=== PATIENT | female | born 1975 | race Caucasian/White ===

== ENCOUNTER 2022-11-18 20:57 | Emergency (ER) | payer OTHER, SELFPAY ==
--- NOTE | ~2022-11-18 | XR_ITS ---
EXAMINATION: XR foot LT 2V, XR ankle LT 2V CLINICAL INFORMATION: Injury COMPARISON: None. TECHNIQUE: 3 views of the left foot. 2 additional views of the left ankle. FINDINGS: Left foot: Oblique fracture of the neck of the third metatarsal with slight lateral displacement of the distal fragment. Nondisplaced fracture at the neck of the fourth metatarsal. Nondisplaced fracture of the fifth digit proximal phalanx shaft with suspected extension to the interphalangeal joint. Joint spaces are maintained. Mild soft tissue swelling of the forefoot. Hallux valgus. Left ankle: No additional fracture. The ankle mortise is congruent. No ankle joint effusion. Mild soft tissue swelling throughout. XR/XR ankle LT 2V IMPRESSION: 1. Fractures of the third and fourth metatarsal necks. Fracture of the fifth digit proximal phalanx. 2. Hallux valgus.
--- NOTE | ~2022-11-18 | XR_ITS ---
EXAMINATION: XR foot LT 2V, XR ankle LT 2V CLINICAL INFORMATION: Injury COMPARISON: None. TECHNIQUE: 3 views of the left foot. 2 additional views of the left ankle. FINDINGS: Left foot: Oblique fracture of the neck of the third metatarsal with slight lateral displacement of the distal fragment. Nondisplaced fracture at the neck of the fourth metatarsal. Nondisplaced fracture of the fifth digit proximal phalanx shaft with suspected extension to the interphalangeal joint. Joint spaces are maintained. Mild soft tissue swelling of the forefoot. Hallux valgus. Left ankle: No additional fracture. The ankle mortise is congruent. No ankle joint effusion. Mild soft tissue swelling throughout. XR/XR foot LT 2V IMPRESSION: 1. Fractures of the third and fourth metatarsal necks. Fracture of the fifth digit proximal phalanx. 2. Hallux valgus.
[2022-11-18 21:21] VITALS: BP 156/110; PULSE 68; RESP 20; TEMP 36.4; O2SAT 100; BMI 22.6
--- NOTE | 2022-11-19 00:34 | ED_ITS ---
HPI - Extremity Injury (Lower) General Chief Complaint: Extremity Injury, Lower Stated Complaint: Ankle inj Time Seen by Provider: 11/19/22 00:23 Source: patient Mode of arrival: ambulatory Limitations: no limitations History of Present Illness HPI Narrative: 47-year-old female with no major medical problems presents with acute left foot pain. Patient was walking down the stairs when she missed a step her foot r olled under her. She now has pain that is moderate in nature. It is worse with ambulation. Does not radiate. There is no numbness or tingling. No additional injuries. Related Data Allergies Allergy/AdvReac Type Severity Reaction Status Date / Time No Known Allergies Allergy Verified 11/19/22 00:30 [facility] Social History Social History Advance Directives: No Advance Directives Information Provided: Yes Physical Exam Vital Signs: Vital Signs: Last Vital Signs Temp 97.5 F 11/18/22 21:21 Pulse 68 11/18/22 21:21 Resp 20 11/18/22 21:21 BP 156/110 H 11/18/22 21:21 Pulse Ox 100 11/18/22 21:21 O2 Del Method Room Air 11/18/22 21:21 BMI result Body Mass Index 22.6 GEN: Well developed, no acute distress, alert, oriented HEENT: Normocephalic, atraumatic, normal external ears, nose appears normal Eyes: Normal to appearance Neck: Supple, no lymphadenopathy Respiratory: Talks in complete sentences, no respiratory distress Extremities: No clubbing cyanosis or edema, tenderness left foot, soft tissue swelling, neurovascular intact, dorsal pedis and posterior tibialis toe pulses intact Neurologic: No focal neurologic deficits, cranial nerves 2-12 intact, gait normal Skin: No rash Course Course Course Narrative: 47-year-old female with 3 toe fractures. Patient will be placed in a walking boot with crutches. She should be nonweightbearing until cleared by orthopedist or podiatry. Take Tylenol and ibuprofen as needed for pain. Medical Decision Making Medical Decision Making [facility] Narrative: Patient with acute traumatic foot pain. X-rays will be ordered. Suspect fracture versus contusion. Differential Diagnosis Differential Diagnoses: The differential diagnosis associated with the presentation includes (Fracture, sprain, strain, contusion) Independent Interpretation I performed an independent interpretation of an: Plain X-Ray (Ankle no fracture, left foot, 3rd and 4th metatarsal fracture and 5th proximal phalanx fracture) Prescription Management I considered prescription management with: Pain Medication Discharge Plan Discharge Clinical Impression: Fracture of toe Patient Disposition: Home, Self-Care Instructions: Crutch Instructions (ED), Toe Fracture (ED), Foot Fracture in Adults (ED), Walking Boot (ED) Additional Instructions: You have fractures of 3 different toes under left foot. 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 For pain, you may take ibuprofen and Tylenol. Referrals: Teofilo Chang MD [Physician] - 5 days
[2022-11-19] MEDS: Acetaminophen 325 MG TABLET 975 MG PO (01:05)
[2022-11-19] MEDS: Ibuprofen 400 MG TABLET PO (01:05)
== END 2022-11-19 01:08 | disposition home or self-care (01) ==
PROVIDERS: Emergency Provider Emergency Medicine
DX: S92.512A Displaced fracture of proximal phalanx of left lesser toe(s), initial encounter for closed fracture (principal); S92.332A Displaced fracture of third metatarsal bone, left foot, initial encounter for closed fracture; S92.342A Displaced fracture of fourth metatarsal bone, left foot, initial encounter for closed fracture; W10.8XXA Fall (on) (from) other stairs and steps, initial encounter; Y93.89 Activity, other specified; Y92.9 Unspecified place or not applicable; Y99.9 Unspecified external cause status
CPT/HCPCS: 73600; 73620; 99283

== ENCOUNTER → 2022-11-28 10:11 | Outpatient (BNVA) | payer OTHER, SELFPAY | PROVIDERS: Visit Provider Physician Assistant | DX: S92.512A Displaced fracture of proximal phalanx of left lesser toe(s), initial encounter for closed fracture (principal); S92.332A Displaced fracture of third metatarsal bone, left foot, initial encounter for closed fracture; S92.342A Displaced fracture of fourth metatarsal bone, left foot, initial encounter for closed fracture | CPT/HCPCS: 99202 ==

== ENCOUNTER 2023-01-09 11:05 | Outpatient (REF) | payer OTHER, SELFPAY ==
--- NOTE | ~2023-01-09 | XR_ITS ---
EXAMINATION: XR FOOT, LEFT CLINICAL INFORMATION: Left foot pain. COMPARISON: 11/18/2022 TECHNIQUE: AP, lateral, and oblique views of the left foot. FINDINGS: There is no significant change in alignment of nondisplaced fracture of the left 5th proximal phalanx and left 3rd distal metacarpal. There is some mild periosteal new bone formation present. Erosion about the medial aspect of the distal 1st metatarsal bone is evident. Joint spaces are maintained. XR/XR foot LT min 3V IMPRESSION: No significant change in appearance of fractures involving the 3rd distal metatarsal and 5th proximal phalanx.
== END 2023-01-09 11:06 | disposition home or self-care (01) ==
LOC: HO.HOSX 11:05
PROVIDERS: Visit Provider Physician Assistant
DX: S92.912D Unspecified fracture of left toe(s), subsequent encounter for fracture with routine healing (principal)
CPT/HCPCS: 73630; 99212

== ENCOUNTER 2024-10-01 18:07 | Emergency (ER) | payer OTHER, SELFPAY ==
[2024-10-01 18:20] VITALS: BP 175/96; PULSE 89; RESP 18; TEMP 36.8; O2SAT 100; BMI 32.6
--- NOTE | 2024-10-01 18:20 | ED_ITS ---
HPI - General Adult General Chief complaint: General Medical Stated complaint: Syncope t-1/ L ear pain Time Seen by Provider: 10/02/24 00:27 Source: patient Limitations: no limitations History of Present Illness ED Provider: Lacy Tan PA-C HPI narrative: 49-year-old female presents for evaluation of a syncopal episode that happened yesterday. Apparently 2 days ago the patient was in [place] and had an endoscopy due to a chicken bone stuck in her throat; she passed out due to esophageal FB. [place] the [place]. She also complains of left ear pain x 1 day. No recent cough or cold symptoms denies fever sore throat nasal congestion. Related Data Home Medications ?Medication ?Instructions ?Recorded ?Confirmed No Known Home Meds 11/28/22 11/28/22 Allergies Allergy/AdvReac Type Severity Reaction Status Date / Time No Known Allergies Allergy Verified 10/01/24 18:23 Review of Systems 2 Review of Systems: Yes all other systems are reviewed and are negative Constitutional: Constitutional: Denies fatigue, Denies fever(s) and Denies headache(s) ENT: Denies dizziness, Reports otalgia, Denies headache(s), Denies nasal congestion and Denies sore throat Cardiovascular: Cardiovascular: Denies chest pain and Denies dyspnea Respiratory: Respiratory: Denies cough and Denies dyspnea Neurologic: Denies dizziness and Denies headache(s) Endocrine: Endocrine: Denies fatigue PMFSH Past Medical History Attestation statement: The following information was validated with the patient. Medical History History of arthritis Social History Social History Patient Tobacco Use Status: Never used Tobacco Smoked in Last 30 Days: No Use of substances other than those prescribed or required for medical reasons: No Advance Directives: No Advance Directives Information Provided: No Patient : No Current occupational status: employed Current occupation: [employer] Physical Exam ED Vital Signs: Vital Signs - 24 hr 10/01/24 18:20 10/01/24 21:37 Temperature 98.2 F 97.8 F Pulse Rate 89 71 Respiratory Rate 18 18 Blood Pressure 175/96 H 156/83 H Pulse Oximetry 100 100 Oxygen Delivery Method Room Air Room Air BMI result Body Mass Index 32.6 Const Other: Alert well-appearing Orientation/consciousness: patient oriented x3 HENMT Other: Left TM is translucent, no overlying erythema no exudate, no tragal tenderness not, no exudate or erythema in external ear canal Resp Effort & Inspection: normal respiratory effort Cardio Other: Normal peripheral perfusion Skin Other: Warm dry no rash Neuro General: patient oriented x3, gait normal, no focal motor deficits and CN's II- XI intact bilaterally Psych Other: Cooperative Course Course Course Narrative: RME, this is a rapid medical exam performed by Scott Cobian please refer to primary provider for complete H&P- 49-year-old female presents for evaluation of a syncopal episode that happened yesterday. Apparently 2 days ago the patient was in [place] and had an endoscopy due to a chicken bone stuck in her throat. The patient [facility] today prompting the visit. She also complains of left ear pain Medications Administered Discontinued Medications Generic Name Dose Route Start Last Admin Trade Name Freq PRN Reason Stop Dose Admin Ibuprofen 600 mg 10/01/24 21:37 10/01/24 21:40 Ibuprofen 600 Mg Tablet PO 10/01/24 21:38 600 mg ONCE ONE Administration Medical Decision Making Medical Decision Making [facility] Narrative: 49-year-old female presents for evaluation of a syncopal episode that happened yesterday. Apparently 2 days ago the patient was in [place] and had an endoscopy due to a chicken bone stuck in her throat; she passed out due to esophageal FB. The patient returned to the [facility] today prompting the visit. She also complains of left ear pain x 1 day. No recent cough or cold symptoms denies fever sore throat nasal congestion. No chronic issues History: Per patient I have considered the following differential diagnoses: Om, OE, serous otitis, viral syndrome Plan: I think things got lost in translation in triage, the patient was not here for evaluation of her syncopal episode. Sounds as if she had a vasovagal response to the esophageal foreign body. Screening labs including a cardiac enzymes viral panel and EKG were obtained. Everything is unremarkable. Her exam was unremarkable, there was no evidence of infection or congestion within the inner ear. She can follow up with the primary care provider. I have independently reviewed the following tests: Labs: No leukocytosis, not anemic, no electrolyte abnormality, troponin negative, viral panel negative EKG: Normal sinus rhythm, rate of 74, no ischemic changes no ectopy QTC 419 Lab Data 10/01/24 18:35 10/01/24 18:35 Labs: Lab Results 10/01/24 Range/Units 18:35 WBC 7.8 (4.8-10.8) X10*3/uL RBC 4.24 (4.20-5.50) X10*6/uL Hgb 12.2 (12.0-16.0) g/dl Hct 37.0 (37.0-47.0) % MCV 87.3 (80.0-98.0) fL MCH 28.8 (27.0-33.0) pg MCHC 33.0 (31.0-35.0) g/dl RDW 13.2 (11.0-16.0) % Plt Count 320 (160-400) X10*3/uL MPV 11.0 (9.4-12.3) fL Immature Gran % (Auto) 0.4 (0.0-0.4) % Neut % (Auto) 50.0 (45-73) % Lymph % (Auto) 37.7 (20-40) % [place] % (Auto) 6.6 (2-11) % Eos % (Auto) 4.5 H (0-4) % Baso % (Auto) 0.8 (0-2) % Lymph # (Auto) 3.0 (1.2-4.9) X10*3/uL [place] # (Auto) 0.5 (0.1-1.2) X10*3/uL Eos # (Auto) 0.4 (0.0-0.4) X10*3/uL Baso # (Auto) 0.1 (0.0-0.2) X10*3/uL Abs Immat Gran (auto) 0.03 (0.00-0.03) X10*3/uL Absolute Neuts (auto) 3.9 (2.0-8.3) x10*3/uL Absolute Nucleated RBC 0.000 (0.0-0.012) X10*3/uL Nucleated RBC % (auto) 0.0 (0.0-0.2) /100WBC Sodium 141 (135-145) mmol/L Potassium 4.6 (3.3-5.1) mmol/L Chloride 110 H (96-108) mmol/L Carbon Dioxide 26 (22-29) mmol/L Anion Gap 10 L (12-20) BUN 11 (9-16) mg/dL Creatinine 0.86 (0.5-1.4) mg/dL Estim Creat Clear Calc 76.2 Estimated GFR > 60 Random Glucose 133 H (60-115) mg/dL Calcium 9.3 (8.4-10.2) mg/dL Magnesium 2.1 (1.6-2.6) mg/dL Total Bilirubin 0.2 (0.0-1.0) mg/dL AST 29 (5-31) U/L ALT 50 H (0-31) U/L Alkaline Phosphatase 63 (39-117) U/L Troponin I High Sens < 2.7 (<3.5-17.0) ng/L Total Protein 7.7 (6.5-8.0) g/dL Albumin 3.9 (3.5-5.0) g/dL Lipase 73 (8-78) U/L Influenza Type A (PCR) NEGATIVE (Negative) Influenza Type B (PCR) NEGATIVE (Negative) RSV RNA Qual (PCR) NEGATIVE (Negative) SARS-CoV-2 RNA (RT-PCR) NEGATIVE (Negative) Discharge Plan Discharge Clinical Impression: Pain in left ear Patient Disposition: Home, Self-Care Instructions: Earache (ED) Additional Instructions: All of your screening labs were normal, there were no concerning changes on your EKG. There was no infection of the ear. Follow up with your primary care provider in a week. Prescriptions: No Action No Known Home Meds Interventions: ED Discharge Assessment Last Done: 10/02/24 01:16 Discharge Date/Time: 10/02/24 01:17 Print Language: [place]
--- NOTE | 2024-10-01 18:21 | ECG_ITS ---
Test Reason : HYPERTENSION Blood Pressure : */* mmHG Vent. Rate : 74 BPM Atrial Rate : 74 BPM P-R Int : 146 ms QRS Dur : 78 ms QT Int : 378 ms P-R-T Axes : 28 9 4 degrees QTcB Int : 419 ms Normal sinus rhythm with sinus arrhythmia Normal ECG No previous ECGs available Referred By: Nghia Cobian Electronically Signed By: MARY ANN MCKOY
[2024-10-01 18:38] LABS: MANUAL DIFF FLAG NO
[2024-10-01 18:46] LABS: Basophils Absolute Auto 0.1 X10*3/uL (0.0-0.2); Basophils Percent Auto 0.8 % (0-2); Eosinophils Absolute Auto 0.4 X10*3/uL (0.0-0.4); Eosinophils Percent Auto 4.5 % (0-4); Hemoglobin 12.2 g/dl (12.0-16.0); Imm Gran Abs Auto 0.03 X10*3/uL (0.00-0.03); Imm Gran Pct Auto 0.4 % (0.0-0.4); Lymphocytes Percent Auto 37.7 % (20-40); Mean Corpuscular Hemoglobin 28.8 pg (27.0-33.0); Mean Corpuscular Volume 87.3 fL (80.0-98.0); Monocytes Absolute Auto 0.5 X10*3/uL (0.1-1.2); Monocytes Percent Auto 6.6 % (2-11); Neutrophils Absolute Auto 3.9 x10*3/uL (2.0-8.3); Platelet Count 320 X10*3/uL (160-400); Red Blood Count 4.24 X10*6/uL (4.20-5.50); Red Cell Distribution Width 13.2 % (11.0-16.0); White Blood Count 7.8 X10*3/uL (4.8-10.8)
[2024-10-01 19:00] LABS: Alanine Aminotransferase 50 U/L (0-31); Albumin Level 3.9 g/dL (3.5-5.0); Alkaline Phosphatase 63 U/L (39-117); Anion Gap 10 (12-20); Aspartate Amino Transferase 29 U/L (5-31); Bilirubin Total 0.2 mg/dL (0.0-1.0); Blood Urea Nitrogen 11 mg/dL (9-16); Calcium 9.3 mg/dL (8.4-10.2); Carbon Dioxide 26 mmol/L (22-29); Chloride 110 mmol/L (96-108); Creatinine Clr Calc Pharmacy 76.2; Estimated Glomerular Filt Rate > 60; Glucose Random 133 mg/dL (60-115); Lipase 73 U/L (8-78); Magnesium 2.1 mg/dL (1.6-2.6); Potassium 4.6 mmol/L (3.3-5.1); Sodium 141 mmol/L (135-145); Total Protein 7.7 g/dL (6.5-8.0)
[2024-10-01 19:12] LABS: Troponin-I High Sensitivity < 2.7 ng/L (<3.5-17.0)
[2024-10-01 19:23] LABS: Influenza A PCR NEGATIVE (Negative); Influenza B PCR NEGATIVE (Negative); Resp Syncy Virus RNA Qual PCR NEGATIVE (Negative); SARS COV2 PCR INHOUSE NEGATIVE (Negative)
[2024-10-01 21:37] VITALS: BP 156/83; PULSE 71; RESP 18; TEMP 36.6; O2SAT 100
[2024-10-01] MEDS: Ibuprofen 600 MG TABLET PO (21:40)
--- NOTE | 2024-10-01 22:29 | PC.NURSE ---
Pt was ambulatory to ED bed w/o diff and no SOB. No unilat neuro deficits noted. States she had a proceedure in [place] d/t a food bolus being stuck. Yesterday felt dizzy and passed out at home. No injuries noted.
--- NOTE | 2024-10-01 22:33 | PC.NURSE ---
Pt has been eating beans and rice w/o diff.
[2024-10-02 01:15] VITALS: BP 133/84; PULSE 70; RESP 16; TEMP 36.4; O2SAT 100
[2024-10-02 01:16] VITALS: BP 133/84; PULSE 70; RESP 16; TEMP 36.4; O2SAT 100
== END 2024-10-02 01:17 | disposition home or self-care (01) ==
PROVIDERS: Physician Assistant; Emergency Provider Emergency Medicine
DX: H92.02 Otalgia, left ear (principal); I49.8 Other specified cardiac arrhythmias; R55 Syncope and collapse; Z03.818 Encounter for observation for suspected exposure to other biological agents ruled out
CPT/HCPCS: 0241U; 80053; 83690; 83735; 84484; 85025; 93005; 99283; 99284

== ENCOUNTER → 2024-10-01 18:21 | Outpatient (BNV) | payer OTHER, SELFPAY | PROVIDERS: Emergency Provider Emergency Medicine; Visit Provider Internal Medicine | DX: R55 Syncope and collapse (principal); I10 Essential (primary) hypertension | CPT/HCPCS: 93010 ==

== ENCOUNTER 2025-06-09 09:45 | Outpatient (REF) | payer OTHER, SELFPAY ==
--- NOTE | ~2025-06-09 | XR_ITS ---
XR KNEE DION 3V HISTORY: Pain in unspecified knee. COMPARISON: None. TECHNIQUE: AP view bilateral knees standing, and lateral views of each knee. FINDINGS: RIGHT KNEE: No fracture, dislocation, or suspicious bone lesion. Minimal medial and mild patellofemoral compartment osteoarthrosis. Minimal spurring of the tibial spines. No evidence of joint effusion. Soft tissues appear normal. LEFT KNEE: No fracture, dislocation, or suspicious bone lesion. Mild medial and patellofemoral compartment osteoarthrosis. Mild spurring of the tibial spines. No evidence of joint effusion. Soft tissues appear normal. XR/XR Knee Dion 1or 2V IMPRESSION: 1. Mild medial and patellofemoral compartment osteoarthrosis of both knees, left greater than right. 2. No evidence of joint effusion. Electronically signed by: Jose Granados MD 06/09/2025 01:12 PM OSMAN
[2025-06-09 12:55] LABS: INTERNATIONAL NORM RATIO 1.0 (0.9-1.1); Prothrombin Time 12.8 SEC (11.2-13.5)
[2025-06-09 12:57] LABS: Hematocrit 42.3 % (37.0-47.0); Hemoglobin 13.9 g/dl (12.0-16.0); Mean Corpuscular HGB Conc 32.9 g/dl (31.0-35.0); Mean Corpuscular Hemoglobin 28.5 pg (27.0-33.0); Mean Corpuscular Volume 86.7 fL (80.0-98.0); NRBC Abs Auto 0.000 X10*3/uL (0.0-0.012); NRBC Pct Auto 0.0 /100WBC (0.0-0.2); Partial Thromboplastin Time 34.1 SEC (26.7-34.1); Platelet Count 352 X10*3/uL (160-400); Red Blood Count 4.88 X10*6/uL (4.20-5.50); White Blood Count 5.7 X10*3/uL (4.8-10.8)
[2025-06-09 13:14] LABS: Appearance Urine Clear; Glucose Urine UA Negative (Negative); PH 5.5 (5.0-9.0); Specific Gravity - Urine 1.020 (1.005-1.025); UMIC TRIGGER UA YES
[2025-06-09 13:27] LABS: Alanine Aminotransferase 25 U/L (0-31); Albumin Level 4.8 g/dL (3.5-5.0); Alkaline Phosphatase 85 U/L (39-117); Anion Gap 12 (12-20); Aspartate Amino Transferase 32 U/L (5-31); Blood Urea Nitrogen 13 mg/dL (9-16); Calcium 9.8 mg/dL (8.4-10.2); Carbon Dioxide 27 mmol/L (22-29); Chloride 105 mmol/L (96-108); Cholesterol 196 mg/dL (<200); Estimated Glomerular Filt Rate > 60; HDL Cholesterol 62 mg/dL (>40); Potassium 3.9 mmol/L (3.3-5.1); Sodium 140 mmol/L (135-145); Total Protein 8.4 g/dL (6.5-8.0); Triglycerides 81 mg/dL (<150)
[2025-06-10 08:20] LABS: ~HepC Num1 0.56 S/CO (0.00-0.79)
[2025-06-10 08:21] LABS: HIV Num 1 0.08 S/CO (0.00-0.99); ~Hepatitis C Antibody Nonreactive (Nonreactive)
== END 2025-06-09 09:46 | disposition home or self-care (01) ==
LOC: HO.LAB 09:45
PROVIDERS: Visit Provider Internal Medicine
DX: Z00.00 Encounter for general adult medical examination without abnormal findings (principal); Z23 Encounter for immunization; I10 Essential (primary) hypertension; M17.0 Bilateral primary osteoarthritis of knee; E66.9 Obesity, unspecified; F33.1 Major depressive disorder, recurrent, moderate; N39.0 Urinary tract infection, site not specified; Z98.84 Bariatric surgery status; Z68.34 Body mass index [BMI] 34.0-34.9, adult
CPT/HCPCS: 36415; 73560; 80053; 80061; 81001; 82306; 83036; 84443; 85027; 85610; 85730; 86200; 86431; 86803; 87389; 90471; 90472; 90656; 90715; 99202

== ENCOUNTER 2025-06-09 09:45 | Outpatient (AMB) | payer OTHER, SELFPAY ==
--- NOTE | 2025-06-09 10:25 | A.OFFPC_ITS ---
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 Transferring care from Dr Mabel Galeas([facility]). Medical records have been requested and have not received. Apron Worker Required: No Meter And Service Line Inspector: Not Required per policy Accompanied by: Self / Same As Patient Allergies No Known Allergies Allergy (Verified 06/09/25 10:26) Medication List - Last Reconciled 06/09/25 by Rashmi Singh MD acetaminophen (Tylenol Extra Strength) 1,000 mg PO Q6H PRN Tobacco use date assessed: 06/09/25 Dental Screening Dental Screen Date: 06/09/25 Did you have a dental visit in the last 12 months?: Yes Did you have a dental problem in the last 6 months where you did not have access to dental care?: No Was dental information given to patient?: Patient has dentist HPI HPI Comments History of Present Illness Details The patient is a 50-year-old female with PMH of MDD, HTN, arthritis presenting to [facility] care with concerns of arthritis, body stiffness, and bruising. She reports her body feels tight and heavy, making it difficult to get up or walk easily. She experiences random bruising that appears a day or two after feeling stiff. The patient has a known history of arthritis in her knees, diagnosed via X-ray in [place] prior to her bariatric surgery (no documentation available).. About two months ago, her leg became significantly swollen, feeling as if it were full of water, and she has since noticed persistent lumps in that area. She experiences pain in both knees, which worsens with walking for more than 10 minutes, causing her to limp, but she is pain-free while sitting. At night, particularly after active days, she has pain with sore toes and a needle-like sensation in both feet, which can disturb her sleep. Past medical history is significant for bariatric surgery, after which her weight decreased from 224 lbs to 135 lbs, with an associated improvement in her arthritis pain. She has since regained some weight, and the pain has returned. She also had a foot fracture in October 2022, for which she was treated by an orthopedic surgeon. She reports feeling depressed due to her physical limitations. She was previously on venlafaxine for depression but stopped about three years ago. For pain, she was taking Tylenol but recently switched to ibuprofen, which she finds more helpful. She also uses a topical cream like Voltaren for joint pain nightly, which provides some relief. Her last colonoscopy was about 4-5 years ago, and her last mammogram was 3 years ago, which showed a small mass that was being monitored as per the patient (no records available). [facility] Medical History (Updated 06/09/25 @ 13:29 by Rashmi Singh MD) History of arthritis Surgical History (Updated 06/09/25 @ 10:35 by AMARILIS Mackey) History of carpal tunnel surgery History of D&C History of 2 sections Hx of bariatric surgery Social History (Updated 06/09/25 @ 10:25 by AMARILIS Mackey) Housing: Apartment Alcohol intake: never Patient Tobacco Use Status: Never used Tobacco e-Cigarette/Vaping Use: Never Used Second Hand Smoke Exposure: No service: No Current occupational status: unemployed Current occupation: [employer] Cognitive needs: No Hearing needs: No Vision needs: Yes (Reading glasses) Questionnaire PHQ-9 Over the last 2 weeks, how often have you been bothered by any of the following problems? 1. Little interest or pleasure in doing things: several days 2. Feeling down, depressed, or hopeless: several days 3. Trouble falling or staying asleep, or sleeping too much: several days 4. Feeling tired or having little energy: several days 5. Poor appetite or overeating: nearly every day 6. Feeling bad about yourself - or that you are a failure or have let yourself or your family down: not at all 7. Trouble concentrating on things, such as reading the newspaper or watching television: several days 8. Moving or speaking so slowly that other people could have noticed. Or the opposite - being so fidgety or restless that you have been moving around a lot more than usual: not at all 9. Thoughts that you would be better off or of hurting yourself in some way: not at all Total score: 8 Depression Screening Interpretation: Positive (2/2 pain in her knees) Depression Screening Done: Yes Source: Developed by Drs. Aram Cui, Daisy Concepcion, Alexander Mendoza and colleagues, with an educational karo from [employer]. Thrive Questionnaire Date Thrive assessed: 06/07/25 I am a: Patient What is your living situation today?: I have a steady place to live Within the past 12 months, did the food you bought not last and you didn't have the money to get more?: Sometimes True Within the past 12 months, did you worry whether your food would run out before you got money to buy more?: Sometimes True Do you have trouble paying for medicines?: No Do you have trouble getting transportation to medical appointments?: No Do you have trouble paying your heating and electricity bill?: No Do you have trouble taking care of your child, family member or friend?: No Do you have trouble with day-to-day activities such as bathing, preparing meals, shopping, managing finances, etc.?: No Are you currently unemployed and looking for a job?: I choose not to answer this question Are you interested in more education?: No Please select the resources that you would like help with: None Currently or been in a relationship where the following occur: No concerns reported THRIVE Score: 2 AUDIT C Alcohol Use Questionnaire (AUDIT-C) 1. How often do you have a drink containing alcohol?: Monthly or less 2. How many drinks containing alcohol do you have on a typical day when you are drinking?: 1 or 2 3. How often do you have six or more drinks on one occasion?: Never Total Score: 1 SALINA-7 AMB Questionnaire SALINA-7 Date SALINA - 7 assessed: 06/09/25 Feeling nervous, anxious, or on edge: 3 = Nearly every day Not being able to stop or control worryin = More than half the days Worrying too much about different things: 2 = More than half the days Trouble relaxin = Several days Being so restless that it is hard to sit still: 0 = Not at all Becoming easily annoyed or irritable: 0 = Not at all Feeling afraid as if something awful might happen: 0 = Not at all Total SALINA-7 score (0-4 normal; 5-9 mild; 10-14 moderate; 15-21 severe): 8 Source: Developed by Drs. Aram Cui, Daisy Concepcion, Alexander Mendoza and colleagues, with an educational karo from [employer]. Review of Systems Const Details: As per HPI. Physical exam (Primary Care) Vital Signs: Last Vital Signs Temp 97.1 F 06/09/25 10:26 Pulse 73 06/09/25 10:26 BP 150/70 H 06/09/25 10:26 Pulse Ox 100 06/09/25 10:26 Oxygen Delivery Method Room Air 06/09/25 10:26 BMI result Body Mass Index 34.2 Tobacco/Smoking Status: Tobacco use Status Tobacco use date assessed 06/09/25 06/09/25 10:37 Patient Tobacco Use Status Never used Tobacco 06/09/25 10:37 e-Cigarette/Vaping Use Never Used 06/09/25 10:37 PHQ-9: PHQ-9 Score PHQ-9: Total score 8 06/09/25 11:15 Depression Screening Interpretation: Positive (2/2 pain in her knees) Thrive Assessment: Date of Thrive Assessment Date Thrive assessed 06/07/25 06/09/25 10:37 Currently or been in a relationship where the following occur: No concerns reported Const Other: Pertinent findings are in BOLD GENERAL APPEARANCE NAD, activity normal for age, well developed/ well nourished, no cyanosis, pallor, or diaphoresis. EYES lids/conjunctiva normal. EARS/NOSE/THROAT Mucous membranes moist, nares normal, lips/teeth normal uvula midline without oral pharyngeal erythema, exudate or swelling TMs normal bilaterally. No lymphangitis/lymphedema. HEAD/NECK normocephalic atraumatic, no facial trauma, neck is supple. RESPIRATORY respiratory effort normal, speaks in full sentences, no tripod position, no accessory muscle use. Lungs clear to auscultation without rhonchi, wheezes, rales CARDIAC Regular rate and rhythm, no edema. ABDOMINAL Soft, ND/NT. No evidence of fluid wave. No pulsatile masses on exam, rebound tenderness, Hedrick sign or pain over Mcburney's point. MUSCLES/EXTREMITIES No abnormal range of motion, no swelling. SKIN Warm, pink and dry. No rashes, dermatoses, petechiae or lesions. NEUROLOGICAL Speech is clear and appropriate. Normal level of consciousness. Gait and coordination are normal. 5/5 strength in all extremities. PSYCH Normal mood and affect. Judgement/competence is appropriate Office Procedures Flu Questionnaire Does the patient have a severe egg allergy?: No Does the patient have severe life threatening allergies?: No Does the patient have a fever or illness today?: No Has the patient ever had Guillain-[place] Syndrome?: No Has the patient ever had any past reaction to a flu shot?: No Immunizations Fluarix [id number] (PF) 45 mcg (15 mcg x 3)/0.5 mL IM syringe Performing Provider: Rashmi Singh MD Performing Location: [facility] Administered by: Paula Thompson RN on 06/09/25 11:31 Dose Route Admin Location Dispensed Lot Number Expiration Date NDC Associate Vice President 0.5 mL IM Right Deltoid 0.5 mL [id number] 01/20/26 57281-512-17 [employer] VIS Given Date VIS Provided VIS Publication Date 06/09/25 Single Vaccine 24 Eligibility Eligibility Date Funding Source Not VFC Eligible 06/09/25 Private Boostrix Tdap 2.5 Lf unit-8 mcg-5 Lf/0.5 mL intramuscular syringe Performing Provider: Rashmi Singh MD Performing Location: [facility] Administered by: Paula Thompson RN on 06/09/25 11:28 Dose Route Admin Location Dispensed Lot Number Expiration Date [facility] Associate Vice President 0.5 mL IM Left Deltoid 0.5 mL [id number] 10/18/27 06378-375-61 [employer] Total Dispensed Waste 0.5 mL 0 % VIS Given Date VIS Provided VIS Publication Date 06/09/25 Single Vaccine 21 Eligibility Eligibility Date Funding Source Not VFC Eligible 06/09/25 Private Coding Level of Care Code New Pt Level 4 (85314) Diagnoses Healthcare maintenance Z00.00 Chronic pain of both knees M25.561; M25.562; G89.29 Chronicity: chronic Laterality: bilateral Bruising T14.8XXA Obesity (BMI 30.0-34.9) E66.9 Moderate episode of recurrent major depressive disorder F33.1 Depression Type: major depressive disorder Major depression recurrence: recurrent Active/Remission status: currently active Major depression episode severity: moderate Urinary tract infection without hematuria, site unspecified N39.0 Urinary tract infection type: site unspecified Hematuria presence: without hematuria Primary hypertension I10 Hypertension type: primary hypertension Time Spent (min) 45 Assessment & Plan Assessment & Plan (1) Healthcare maintenance: Code(s): Z00.00 - Encounter for general adult medical examination without abnormal findings Category: Medical Plan: CBC, CMP, Lipid panel, A1C, TSH w T4, vit D. Ordered. Shingles 2 doses when >50 yo. Advised patient to get it from retail pharmacy. COVID: two doses. Completed. Tdap: Today. Pneumococcal: >50 yo. 18-49 with CKD, lung disease, weakened immune system, Heart disease, DM, cochlear implant. Next visit. Flu vaccine: Today. Colonoscopy: 45-75. Got iti recently. Reports it was normal. Asked the patient to bring the colonoscopy results with her next visit. Will be due at 53 if no records provided. AAA: 65 -75. NI. never smoked. CT lun - 78. NI. never smoked. HPV: senior occupational therapist referral. HIV: Ordered. HCV: Ordered. Dexa: At 63. Mammogram: Ordered. (2) Knee pain: Code(s): M25.569 - Pain in unspecified knee Category: Medical Qualifiers: Chronicity: chronic Laterality: bilateral Qualified Code(s): M25.561 - Pain in right knee; M25.562 - Pain in left knee; G89.29 - Other chronic pain Plan: - An X-ray of both knees will be obtained to assess the current state of her arthritis. - Rheumatoid factor and CCP ordered. - The patient may continue using ibuprofen, Tylenol, and topical diclofenac gel (Voltaren) for pain management. - The patient is instructed to take pictures of any swelling, lumps, or bruises that appear. (3) Bruising: Code(s): T14.8XXA - Other injury of unspecified body region, initial encounter Category: Medical Plan: - Coagulation studies, including INR, PT, and PTT, will be ordered to investigate the cause of the bruising. - Advised the patient to get pictures of her bruises when they occur. (4) Obesity (BMI 30.0-34.9): Comment: s/p Bariatric surgery. Code(s): E66.9 - Obesity, unspecified Category: Medical Plan: - A referral will be placed to a weight management clinic to assist with weight loss strategies, including potential prescription medications. (5) Depression: Code(s): F32.A - Depression, unspecified Category: Medical Qualifiers: Depression Type: major depressive disorder Major depression recurrence: recurrent Active/Remission status: currently active Major depression episode severity: moderate Qualified Code(s): F33.1 - Major depressive disorder, recurrent, moderate Plan: - Venlafaxine will be initiated at a starting dose of 37.5 mg daily to manage her mood and potentially alleviate some of her pain symptoms. - A follow-up appointment is scheduled in one month to assess her response, with a goal of potentially increasing the dose to 75 mg. (6) Urinary tract infection: Comment: Suspected. Code(s): N39.0 - Urinary tract infection, site not specified Category: Medical Qualifiers: Urinary tract infection type: site unspecified Hematuria presence: without hematuria Qualified Code(s): N39.0 - Urinary tract infection, site not specified Plan: - A urinalysis will be ordered to check for a urinary tract infection based on the patient's report of urine odor. (7) HTN (hypertension): Code(s): I10 - Essential (primary) hypertension Category: Medical Qualifiers: Hypertension type: primary hypertension Qualified Code(s): I10 - Essential (primary) hypertension Plan: - Amlodipine 5 mg daily will be started for blood pressure management. - The patient was advised to monitor her blood pressure at home or at a pharmacy and keep a log of the readings to review at her one-month follow-up. Plan I have discussed with the patient that we will start with a comprehensive workup to investigate her symptoms of joint pain, stiffness, and bruising. This includes ordering a panel of blood tests to check for general health markers, inflammatory conditions like rheumatoid arthritis, and coagulation issues, as well as an X-ray of her knees. We discussed initiating treatment for her elevated blood pressure with amlodipine 5 mg and for her depression with venlafaxine 37.5 mg, which may also help with her pain. I advised her to monitor her blood pressure at home. I have placed a referral to a weight management clinic to address her weight regain and to an HYDRO TECHNICIAN for routine care. We also arranged for her to receive her flu and tetanus vaccines today. I instructed her to take photographs of any new bruises or swelling and to bring her previous colonoscopy results to our follow-up visit in one month, where we will review all results and reassess her treatment plan. We will follow-up in one month to assess response to Venlafaxine, review knee images, lab results and pictures of bruising if any. Orders: Orders Comprehensive Met. Panel Today Z00.00 - Encounter for general adult medical examination without abnormal findings Hemoglobin A1c Today Z00.00 - Encounter for general adult medical examination without abnormal findings HIV Ab/Ag Today Z00.00 - Encounter for general adult medical examination without abnormal findings Lipid Panel Today Z00.00 - Encounter for general adult medical examination without abnormal findings Vitamin D 25-OH Total Today Z00.00 - Encounter for general adult medical examination without abnormal findings TSH reflex Free T4 Today Z00.00 - Encounter for general adult medical examination without abnormal findings Prothrombin Time INR Today T14.8XXA - Other injury of unspecified body region, initial encounter Cyclic Citrullinated Peptide Today M25.569 - Pain in unspecified knee TDaP Immunization Today Z23 - Encounter for immunization Complete Blood Count no Diff Today Z00.00 - Encounter for general adult medical examination without abnormal findings Hepatitis C Antibody Reflex Today Z00.00 - Encounter for general adult medical examination without abnormal findings XR Knee Dion 1or 2V Today M25.569 - Pain in unspecified knee Partial Thromboplastin Time Today T14.8XXA - Other injury of unspecified body region, initial encounter UA w Microscopic Today Z00.00 - Encounter for general adult medical examination without abnormal findings Rheumatoid Factor Today M25.569 - Pain in unspecified knee MM screening mammo BI Today Z12.31 - Encounter for screening mammogram for malignant neoplasm of breast Influenza [id number] Immunization Today Z23 - Encounter for immunization Referrals Medical Weight Management Referral E66.9 - Obesity, unspecified HYDRO TECHNICIAN Referral Z00.00 - Encounter for general adult medical examination without abnormal findings Medications: New venlafaxine ER 37.5 mg PO DAILY 30 caps 0RF amlodipine 5 mg PO DAILY 30 tabs 0RF
[2025-06-09 10:26] VITALS: BP 150/70; PULSE 73; TEMP 36.2; O2SAT 100; BMI 34.2
--- NOTE | 2025-06-09 11:31 | AM.OFFVISNUR ---
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 Allergies No Known Allergies Allergy (Verified 06/09/25 10:26) Medication List - Last Reconciled 06/09/25 by Rashmi Singh MD acetaminophen (Tylenol Extra Strength) 1,000 mg PO Q6H PRN Office Procedures Flu Questionnaire Does the patient have a severe egg allergy?: No Does the patient have severe life threatening allergies?: No Does the patient have a fever or illness today?: No Has the patient ever had Guillain-[place] Syndrome?: No Has the patient ever had any past reaction to a flu shot?: No Immunizations Fluarix [id number] (PF) 45 mcg (15 mcg x 3)/0.5 mL IM syringe Performing Provider: Rashmi Singh MD [place] [facility] Administered by: Paula Thompson RN on 06/09/25 11:31 Dose Route Admin Location Dispensed Lot Number Expiration Date [place] Child Neurologist 0.5 mL IM Right Deltoid 0.5 mL [id number] 01/20/26 11592-503-00 [employer] VIS Given Date VIS Provided VIS Publication Date 06/09/25 Single Vaccine 24 Eligibility Eligibility Date Funding Source Not VFC Eligible 06/09/25 Private Boostrix Tdap 2.5 Lf unit-8 mcg-5 Lf/0.5 mL intramuscular syringe Performing Provider: Rashmi Singh MD Performing Location: [facility] Administered by: Paula Thompson RN on 06/09/25 11:28 Dose Route Admin Location Dispensed Lot Number Expiration Date [facility] Child Neurologist 0.5 mL IM Left Deltoid 0.5 mL [id number] 10/18/27 46261-840-59 [employer] Total Dispensed Waste 0.5 mL 0 % VIS Given Date VIS Provided VIS Publication Date 06/09/25 Single Vaccine 21 Eligibility Eligibility Date Funding Source Not VFC Eligible 06/09/25 Private Assessment & Plan Assessment & Plan (1) Healthcare maintenance: Code(s): Z00.00 - Encounter for general adult medical examination without abnormal findings Category: Medical (2) Knee pain: Code(s): M25.569 - Pain in unspecified knee Category: Medical (3) Bruising: Code(s): T14.8XXA - Other injury of unspecified body region, initial encounter Category: Medical (4) Obesity (BMI 30.0-34.9): Code(s): E66.9 - Obesity, unspecified Category: Medical Orders: Orders Comprehensive Met. Panel Today Z00.00 - Encounter for general adult medical examination without abnormal findings Hemoglobin A1c Today Z00.00 - Encounter for general adult medical examination without abnormal findings HIV Ab/Ag Today Z00.00 - Encounter for general adult medical examination without abnormal findings Lipid Panel Today Z00.00 - Encounter for general adult medical examination without abnormal findings Vitamin D 25-OH Total Today Z00.00 - Encounter for general adult medical examination without abnormal findings TSH reflex Free T4 Today Z00.00 - Encounter for general adult medical examination without abnormal findings Prothrombin Time INR Today T14.8XXA - Other injury of unspecified body region, initial encounter Cyclic Citrullinated Peptide Today M25.569 - Pain in unspecified knee TDaP Immunization Today Z23 - Encounter for immunization Complete Blood Count no Diff Today Z00.00 - Encounter for general adult medical examination without abnormal findings Hepatitis C Antibody Reflex Today Z00.00 - Encounter for general adult medical examination without abnormal findings XR Knee Dion 1or 2V Today M25.569 - Pain in unspecified knee Partial Thromboplastin Time Today T14.8XXA - Other injury of unspecified body region, initial encounter UA w Microscopic Today Z00.00 - Encounter for general adult medical examination without abnormal findings Rheumatoid Factor Today M25.569 - Pain in unspecified knee MM screening mammo BI Today Z12.31 - Encounter for screening mammogram for malignant neoplasm of breast Influenza [id number] Immunization Today Z23 - Encounter for immunization Referrals Medical Weight Management Referral E66.9 - Obesity, unspecified MUSIC COMPOSER Referral Z00.00 - Encounter for general adult medical examination without abnormal findings Medications: New venlafaxine ER 37.5 mg PO DAILY 30 caps 0RF amlodipine 5 mg PO DAILY 30 tabs 0RF Coding Diagnoses Healthcare maintenance Z00.00 Knee pain M25.569 Bruising T14.8XXA Obesity (BMI 30.0-34.9) E66.9
== END 2025-06-09 11:25 | disposition home or self-care (01) ==
LOC: HO.HMCH 09:46
PROVIDERS: Visit Provider Internal Medicine
DX: M25.561 Pain in right knee (principal); M25.562 Pain in left knee; F33.1 Major depressive disorder, recurrent, moderate; E66.9 Obesity, unspecified; Z68.34 Body mass index [BMI] 34.0-34.9, adult; G89.29 Other chronic pain; T14.8XXA Other injury of unspecified body region, initial encounter; N39.0 Urinary tract infection, site not specified; I10 Essential (primary) hypertension; Z23 Encounter for immunization

== ENCOUNTER → 2025-06-09 11:37 | Outpatient (BNV) | payer OTHER, SELFPAY | PROVIDERS: Visit Provider Radiology Diagnostic Radiology | DX: M17.0 Bilateral primary osteoarthritis of knee (principal) | CPT/HCPCS: 73560 ==

== ENCOUNTER 2025-07-14 10:44 | Outpatient (AMB) | payer OTHER, SELFPAY ==
[2025-07-14 11:08] VITALS: BP 132/90; PULSE 89; RESP 18; TEMP 36.6; O2SAT 98; BMI 33.8
--- NOTE | 2025-07-14 11:08 | MHC.PC.OV ---
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 Passenger Train Required: No Accompanied by: Self / Same As Patient Allergies No Known Allergies Allergy (Verified 07/14/25 11:08) Medication List - Last Reconciled 07/14/25 by Rashmi Singh MD acetaminophen (Tylenol Extra Strength) 1,000 mg PO Q6H PRN amlodipine 5 mg PO DAILY diclofenac sodium 1% (Voltaren Arthritis Pain) 2 grams topical QID ibuprofen 200 mg PO Q6H PRN magnesium 200 mg PO DAILY multivitamin 1 tab PO DAILY venlafaxine ER 37.5 mg PO DAILY Tobacco use date assessed: 06/09/25 Dental Screening Dental Screen Date: 06/09/25 Did you have a dental visit in the last 12 months?: Yes Did you have a dental problem in the last 6 months where you did not have access to dental care?: No Was dental information given to patient?: Patient has dentist HPI HPI Comments History of Present Illness Details The patient is a 50 year old female with PMH of fibromyalgia, knee arthritis, HTN, MDD, presenting for a follow-up visit to review ongoing management of multiple issues discussed at her initial visit on June 09. Her past medical history is significant for bariatric surgery with substantial weight loss, though she has had some recent weight regain. At her last visit, she reported arthritis in her knees, bruising, and stiffness. For complaints of low mood and symptoms suggestive of fibromyalgia, including bodily stiffness and bruising, the patient was started on venlafaxine 37.5 mg. She reports her mood is a little better. She notes a family history of fibromyalgia in two sisters with similar symptoms. The patient reports bilateral knee osteoarthritis, confirmed by x-rays in May showing mild changes, left greater than right. Symptoms are activity-dependent; walking for more than 10 minutes causes limping. At night, she experiences a bothersome restless sensation in her legs that disrupts her sleep. She finds the voltaren cream and ibuprofen provides some relief at night. She reports some lower extremity swelling and itching at night, particularly after a busy day. For hypertension, she was started on amlodipine 5 mg and has been monitoring her blood pressures at home, with readings now in a good range (SBP 130-140 mmHg). She was recently treated with Bactrim for a urinary tract infection. Her symptoms of burning and urinary odor have resolved, but she notes her urine remains dark. A new complaint is dryness and daily itching in her right ear, which she likens to eczema. A prior trial of an unknown ear drop helped with the dryness but not the itching. During the prior visit the patient reported she had a colnoscopy in the past and I asked her to bring her the results today. Today, she reported she never had a colonsocopy. We will order Colonsocopy. [facility] Medical History (Updated 07/14/25 @ 11:59 by Rashmi Singh MD) History of arthritis Surgical History (Updated 06/09/25 @ 10:35 by AMARILIS Mackey) History of carpal tunnel surgery History of D&C History of 2 sections Hx of bariatric surgery Social History (Updated 06/09/25 @ 10:25 by AMARILIS Mackey) Housing: Apartment Alcohol intake: never Patient Tobacco Use Status: Never used Tobacco Tobacco use type: Cigarette e-Cigarette/Vaping Use: Never Used Second Hand Smoke Exposure: No service: No Current occupational status: unemployed Cognitive needs: No Hearing needs: No Vision needs: Yes (Reading glasses) Questionnaire Thrive Questionnaire Date Thrive assessed: 06/07/25 I am a: Patient What is your living situation today?: I have a steady place to live Within the past 12 months, did the food you bought not last and you didn't have the money to get more?: Sometimes True Within the past 12 months, did you worry whether your food would run out before you got money to buy more?: Sometimes True Do you have trouble paying for medicines?: No Do you have trouble getting transportation to medical appointments?: No Do you have trouble paying your heating and electricity bill?: No Do you have trouble taking care of your child, family member or friend?: No Do you have trouble with day-to-day activities such as bathing, preparing meals, shopping, managing finances, etc.?: No Are you currently unemployed and looking for a job?: I choose not to answer this question Are you interested in more education?: No Currently or been in a relationship where the following occur: No concerns reported THRIVE Score: 2 SALINA-7 AMB Questionnaire SALINA-7 Date SALINA - 7 assessed: 06/09/25 Source: Developed by Drs. Aram Cui, Daisy Concepcion, Alexander Mendoza and colleagues, with an educational karo from [employer]. Review of Systems Const Details: As per HPI. Physical exam (Primary Care) Vital Signs: Last Vital Signs Temp 97.9 F 07/14/25 11:08 Pulse 89 07/14/25 11:08 Resp 18 07/14/25 11:08 BP 132/90 H 07/14/25 11:08 Pulse Ox 98 07/14/25 11:08 Oxygen Delivery Method Room Air 07/14/25 11:08 BMI result Body Mass Index 33.8 Tobacco/Smoking Status: Tobacco use Status Tobacco use date assessed 06/09/25 07/14/25 11:09 Patient Tobacco Use Status Never used Tobacco 07/14/25 11:09 Tobacco use type Cigarette 07/14/25 11:17 e-Cigarette/Vaping Use Never Used 07/14/25 11:09 Thrive Assessment: Date of Thrive Assessment Date Thrive assessed 06/07/25 07/14/25 11:09 Currently or been in a relationship where the following occur: No concerns reported Const Other: Pertinent findings are in BOLD GENERAL APPEARANCE NAD, activity normal for age, well developed/ well nourished, no cyanosis, pallor, or diaphoresis. EYES lids/conjunctiva normal. EARS/NOSE/THROAT Mucous membranes moist, nares normal, lips/teeth normal uvula midline without oral pharyngeal erythema, exudate or swelling TMs normal bilaterally. No lymphangitis/lymphedema. HEAD/NECK normocephalic atraumatic, no facial trauma, neck is supple. Right ear with dry skin on external canal. RESPIRATORY respiratory effort normal, speaks in full sentences, no tripod position, no accessory muscle use. Lungs clear to auscultation without rhonchi, wheezes, rales CARDIAC Regular rate and rhythm, no edema. ABDOMINAL Soft, ND/NT. No evidence of fluid wave. No pulsatile masses on exam, rebound tenderness, Hedrick sign or pain over Mcburney's point. MUSCLES/EXTREMITIES No abnormal range of motion, no swelling. SKIN Warm, pink and dry. No rashes, dermatoses, petechiae or lesions. NEUROLOGICAL Speech is clear and appropriate. Normal level of consciousness. Gait and coordination are normal. 5/5 strength in all extremities. PSYCH Normal mood and affect. Judgement/competence is appropriate Results Reviewed Results Reviewed: - Labs from prior visit: Hepatitis C, HIV, rheumatoid factor, and CCP were negative. - Labs from prior visit: CBC, PT, INR, and PTT were normal. - Labs from prior visit: Urinalysis was consistent with a UTI, which was treated. - Labs from prior visit: Vitamin D level was normal. - Imaging: X-rays of the knees from June 09 showed mild medial and patellofemoral compartment osteoarthritis, left greater than right. Coding Level of Care Code Est Pt Level 4 (56580) Diagnoses Primary osteoarthritis of both knees M17.0 Osteoarthritis type: primary Laterality: bilateral Primary hypertension I10 Hypertension type: primary hypertension Bruising T14.8XXA Moderate episode of recurrent major depressive disorder F33.1 Depression Type: major depressive disorder Major depression recurrence: recurrent Active/Remission status: currently active Major depression episode severity: moderate Fibromyalgia M79.7 Obesity (BMI 30.0-34.9) E66.9 Otitis externa H60.90 Time Spent (min) 30 Assessment & Plan Assessment & Plan (1) Knee osteoarthritis: Code(s): M17.9 - Osteoarthritis of knee, unspecified Category: Medical Qualifiers: Osteoarthritis type: primary Laterality: bilateral Qualified Code(s): M17.0 - Bilateral primary osteoarthritis of knee Plan: - The patient experiences activity-limiting symptoms and nocturnal discomfort despite using a topical cream and ibuprofen as needed. - A referral for physical therapy will be placed to help manage symptoms. - She is encouraged to continue the as-needed use of ibuprofen, Tylenol and topical analgesics. (2) HTN (hypertension): Code(s): I10 - Essential (primary) hypertension Category: Medical Qualifiers: Hypertension type: primary hypertension Qualified Code(s): I10 - Essential (primary) hypertension Plan: - The patient's blood pressure is well-controlled on her current regimen. - Will continue amlodipine 5 mg daily. (3) Bruising: Code(s): T14.8XXA - Other injury of unspecified body region, initial encounter Category: Medical Plan: Recent PT, PTT, INR were within normal limits. - Bruising might eb related to the pateint's reported fibromyalgia. - Continue Venlafaxine for fibromyalgia. - CTM. (4) Depression: Code(s): F32.A - Depression, unspecified Category: Medical Qualifiers: Depression Type: major depressive disorder Major depression recurrence: recurrent Active/Remission status: currently active Major depression episode severity: moderate Qualified Code(s): F33.1 - Major depressive disorder, recurrent, moderate Plan: - Increased Venlafaxine from 37.5 mg to 75 mg Daily. (5) Fibromyalgia: Code(s): M79.7 - Fibromyalgia Category: Medical Plan: - The patient's symptoms of stiffness, bruising, and low mood have shown slight improvement on venlafaxine 37.5 mg. - As venlafaxine is a treatment for fibromyalgia, the dose will be increased to 75 mg to better target her symptoms and mood. (6) Obesity (BMI 30.0-34.9): Comment: s/p Bariatric surgery. Code(s): E66.9 - Obesity, unspecified Category: Medical Plan: Patient requesting weight management injection. - Weight management referral placed during his prior visit. (7) Otitis externa: Code(s): H60.90 - Unspecified otitis externa, unspecified ear Category: Medical Plan: - The patient reports new-onset daily itching and dryness in the right ear, with minimal relief from a previous Moisturizing preparation. - Ciprofloxacin- Hydrocortisone ear drop prescribed. Plan I discussed with the patient her progress since our last visit. We reviewed her home blood pressure logs, which show good control, and agreed to continue amlodipine 5 mg. Regarding her low mood and fibromyalgia-like symptoms, I noted the partial benefit from the starting dose of venlafaxine and recommended increasing the dose to 75 mg to achieve better symptom control. For her bilateral knee osteoarthritis, we discussed that while medications like ibuprofen and topical creams provide some relief, physical therapy would be beneficial, and I will place a referral for this. Concerning her new symptom of right ear itching and dryness, I prescribed her ciprofloxacin-cortisone ear drops. We discussed important health screenings, confirming she has never had a colonoscopy, and I will refer her for one. I advised her to keep her upcoming appointments with [employer] and weight management. A follow-up visit is scheduled in 6 months for a general check-up and in 11 months for her annual physical, with labs to be drawn beforehand. Orders: Orders Comprehensive Met. Panel 11 Months Z00.00 - Encounter for general adult medical examination without abnormal findings Hemoglobin A1c 11 Months Z00.00 - Encounter for general adult medical examination without abnormal findings Lipid Panel 11 Months Z00.00 - Encounter for general adult medical examination without abnormal findings TSH reflex Free T4 11 Months Z00.00 - Encounter for general adult medical examination without abnormal findings Vitamin D 25-OH Total 11 Months Z00.00 - Encounter for general adult medical examination without abnormal findings PT Evaluation and Treatment Today M17.9 - Osteoarthritis of knee, unspecified Complete Blood Count no Diff 11 Months Z00.00 - Encounter for general adult medical examination without abnormal findings Referrals Open Access Screening Colonoscopy Referral Z12.11 - Encounter for screening for malignant neoplasm of colon, Z12.12 - Encounter for screening for malignant neoplasm of rectum Medications: New ciprofloxacin-hydrocortisone 0.2-1 % 3 drps otic (ears) BID 10 mL 0RF 7 days Changed From venlafaxine ER 37.5 mg PO DAILY 30 caps 3RF To venlafaxine ER 75 mg (2 x 37.5 mg) PO DAILY 30 caps 3RF
--- OUTSIDE RECORDS SUMMARY | 2025-07-14 13:20 | XMS_ITS | Clinical Summary ---
Author Organization [facility] Address [address] [place] [address] Phone Care Team Providers Care Car Record Clerk Name Role Phone Mabel Gaviria Primary Care Provider Jono jones Allergies No known active allergies Medications bismuth subsalicylate (PEPTO BISMOL) 262 MG/15ML suspension Take 15 mL by mouth every 6 (six) hours as needed for indigestion or heartburn Active multivitamin with minerals (THERA M PLUS) tablet Take 1 tablet by mouth daily Active Cyanocobalamin (B-12 PO) Take 1 tablet by mouth daily Active pantoprazole (PROTONIX) 40 MG EC tablet Take one tablet twice daily, until you experience 24 hours of no pain, then take just one tablet daily. 40 tablet 0 Active Social History Tobacco Use Types Packs/Day Years Used Date Smoking Tobacco: Never Smokeless Tobacco: Never Alcohol Use Standard Drinks/Week Comments No 0 (1 standard drink = 0.6 oz pur e alcohol) Comments No Sex and Gender Information Value Date Recorded Sex Assigned at Not on file Legal Sex Female 5:37 PM EDT Gender Identity Not on file Sexual Orientation Not on file Last Filed Vital Signs Vital Sign Reading Time Taken Comments Blood Pressure 123/85 10/23/2019 6:29 PM EDT Pulse 92 10/23/2019 6:29 PM EDT Temperature 36.8 C (98.3 F) 10/23/2019 2:25 PM EDT Respiratory Rate 16 10/23/2019 6:29 PM EDT Oxygen Saturation 100% 10/23/2019 6:29 PM EDT Inhaled Oxygen Concentration - - Weight 63.1 kg (139 lb 1.8 oz) 10/23/2019 9:22 A M EDT Height 157.5 cm (5' 2 ) 10/23/2019 9:22 AM EDT Body Mass Index 25.44 10/23/2019 9:22 AM EDT Plan of Treatment Health Maintenance Due Date Last Done Comments [facility] TOPIC SIGMOIDOSCOPY 1973 [facility] Topic HIV Screening 1973 [facility] Topic Tdap Vaccine (1 - Tdap) 1992 [facility] Topic Lipid Profile 5 years 1995 [facility] Topic Cervical Cancer Screening 2003 [facility] TOPIC MAMMOGRAM 2013 [facility] TOPIC FOBT/FIT TEST 2018 [facility] Topic Cologuard 2018 [facility] Topic Colon Cancer Screening 2018 [facility] Topic Colonoscopy 2018 [facility] Topic Pneumococcal Va ccine (HEDIS/Adult) (1 of 1 - PCV) 2023 [facility] Topic Shingrix (1 of 2) 2023 [facility] Topic Influenza (Flu) Seasonal (#1) 2025 [facility] AMB RSV (under 20 months) Aged Out No longer eligible based on patient's age to complete this topic [facility] Topic HIB Vaccines Aged Out No longer eligible based on patient's age to complete [place] [id number] [facility] DIRECT Care Teams Car Record Clerk Relationship Specialty Start Date End Date Mabel Gaviria PCP - General Family Medicine 03/26/18
--- OUTSIDE RECORDS SUMMARY | 2025-07-14 13:20 | XMS_ITS | Clinical Summary ---
Author Organization [facility] Address [address] [place] [address] Care Team Providers Care Vocal Teacher Name Role Phone Bacilio Patel MD Unavailable Allergies Active Allergy Reactions Criticality Noted Date Comments Povidone-Iodine Rash Level of certainty: Uncertain Medications calcium citrate-vitamin D3 (CITRACAL+D) 315 mg-5 mcg (200 unit) per tablet Take 500mg by mouth twice daily. 8 Active cholecalciferol (VITAMIN D3) 1,000 unit tablet 1 tablet(s) by mouth once daily 90 tablet 3 1 Active clotrimazole (LOTRIMIN) 1 % external solution instill to affected ear(s) twice a day use x 10-14 days 30 mL 0 1 Active ferrous sulfate 300 mg (60 mg iron)/5 mL syrup 5 ml by mouth every other day 150 mL 11 1 Active diclofenac sodium (VOLTAREN) 1 % Gel apply 2-4 gm to affected area(s) four times a day as needed for pain do not use with other NSAIDs; maximum: 16 g per joint per day 100 g 6 2 Active escitalopram oxalate (LEXAPRO) 20 MG tablet 1 tablet(s) by mouth once daily higher dose 90 tablet 3 1 Active pediatric multivitamin (FLINTSTONES MULTIVITAMIN) chewable tablet 2 tablet(s) by mouth daily 8 Active urea (CARMOL) 40 % Crea apply to affected nail(s) 1-3 times daily as needed 85 g 2 1 Active sennosides 8.8 mg/5 mL Syrp 5 ml by mouth twice daily as needed for constipation use until you are having soft, easy to pass, daily bowel movements 237 mL 3 1 Active lidocaine 5 % Crea apply a thin layer to affected area(s) four times a day as needed for pain 30 g 6 1 Active polyethylene glycol (GLYCOLAX) 17 gram powder 17 grams by mouth once daily as needed for constipation mix in 6-8 ounces of water or liquid 850 g 3 1 Active hydrOXYzine HCL (ATARAX) 10 MG tablet TAKE 1 TABLET(S) BY MOUTH ONCE A DAY AT BEDTIME NEEDED FOR ANXIETY SYMPTOMS 10 tablet 4 2 Active cyanocobalamin (vitamin B-12) 500 MCG tablet 1 tablet(s) by mouth daily 8 Active ascorbic acid, vitamin C, (vitamin C) 1000 MG tablet tablet(s) oral 8 Active Active Problems Problem Noted Date Diagnosed Date Hypertension 10/30/2024 Thrombocytosis 10/30/2024 Knee pain 06/03/2021 Vitamin D insufficiency 12/23/2020 Iron deficiency anemia 12/23/2020 History of sleeve gastrectomy 04/16/2019 Depression 09/22/2017 Herpesviral infection, unspecified 10/15/2010 Overview (10/30/2024): on left cheek under eye. Immunizations Immunization Administration Dates Next Due COVID-19 Vaccine (Stylecrook) Original Formulation (prior to Jul 2021) 08/23/2021,12/03/2020,11/10/2020 H1N1 All Forms 06/01/2009 Hepatitis B 06/01/2009,09/25/2008,11/09/2005 Influenza Vaccine - STANDARD - PF (FLUZONE/FLUARIX/FLULAVAL/AFLURIA) 07/20/2021,06/08/2011 Tdap Vaccine (BOOSTRIX/ADACEL) 02/09/2018 Family History Medical History Relation Comments Alcohol abuse Father Lung disease Father Breast cancer Maternal Aunt Arthritis Mother Osteoporosis Mother Colon cancer Neg Hx Coronary artery disease Neg Hx Ovarian cancer Neg Hx Stroke Neg Hx Relation Status Comments Father Maternal Aunt Mother Social History Tobacco Use Types Packs/Day Years Used Date Smoking Tobacco: Never Assessed Comments Unknown Sex and Gender Information Value Date Recorded Sex Assigned at Female 10/03/2024 2:21 PM EDT Legal Sex Female 1:02 AM EST Gender Identity Female 10/03/2024 2:21 PM EDT Sexual Orientation Not on file Last Filed Vital Signs Vital Sign Reading Time Taken Comments Blood Pressure - - Pulse - - Temperature - - Respiratory Rate - - Oxygen Saturation - - Inhaled Oxygen Concentration - - Weight 76.2 kg (168 lb) 09/24/2021 12:0 0 AM EST Legacy value: 168 lbs Height 157.5 cm (5' 2 ) 09/24/2021 12:0 0 AM EST Legacy value: 62 in Body Mass Index 30.73 09/24/2021 12:00 AM EST Plan of Treatment Health Maintenance Due Date Last Done Comments Blood Pressure 1973 Depression Screening 1985 Pap Smear 1994 Cervical Cancer Screening 2003 HPV/Cotest 2003 CT Colonography 2018 Colonoscopy 2018 Colorectal Cancer Screening 2018 FIT 2018 FOBT 2018 Multitarget Stool DNA (Cologuard) 2018 Sigmoidoscopy 2018 Pneumococcal Vaccine: 50+ Years (1 of 1 - PCV) 2023 Zoster Vaccine (1 of 2) 2023 Breast Cancer Screening 08/05/2024 08/05/2022, 08/03 COVID-19 Vaccine ( - season) 2025 08/23/2021, 12/03/2020, 11/10/2020 Influenza Vaccine (#1) 2025 , 06/08/2011, 06/01/2009 Lipid Panel 12/22/2025 12/22/2020, 06/0 07/2020, 12/22/2020, Additional history exists DTaP,Tdap,and Td Vaccines (2 - Td or Tdap) 02/10/2028 02/09/2018 Hepatitis C Screening Completed 10/22/2012, 011 Meningococcal B Vaccines Aged Out No longer eligible based on patient's age to complete this topic Meningococcal Vaccines Aged Out No lo nger eligible based on patient's age to complete this topic Procedures Procedure Name Priority Date/Time Associated Diagnosis Comments MAMMO SCREENING TOMOSYNTHESIS BILATERAL Routine 08/05/2022 8:51 AM EST HDL CHOLESTEROL Routine 12/22/2020 11:02 AM EDT from Last 3 Months or Most Recently Relevant to Health Maintenance Results * Mammo Screening Tomosynthesis Bilateral (08/05/2022 8:51 AM EST) Anatomical Region Laterality Modality Breast Bilateral Mammography 08/05/2022 8:51 AM EST 08/09/2022 Narrative 08/08/2022 5:38 PM EST Final Report EXAMINATION: BILATERAL DIGITAL SCREENING MAMMOGRAM AND 3D DIGITAL BREAST TOMOSYNTHESIS INTERPRETED WITH CAD INDICATION: Screening. Family history of breast cancer in maternal aunt at age 35. COMPARISON: Prior mammogram(s) available in PACS. TECHNIQUE: Digital Mammogram and 3D tomosynthesis views were obtained. Computer aided detection was utilized and assisted with interpretation. FINDINGS: Tissue density: C - The breast tissue is heterogeneously dense which may obscure detection of small masses. Stable left upper outer oval circumscribed isodense mass corresponding to a benign simple cyst noted on the ultrasound dated 03 August 2021. There is no suspicious dominant mass, unexplained architectural distortion or suspicious grouped microcalcifications. IMPRESSION: No mammographic evidence of malignancy. RECOMMENDATION(S): Age and risk appropriate screening. NOTIFICATION: A summary letter will be sent to the patient with this result. BI-RADS: 2 Benign. Comments: Birads Category: 2; Breast Density: HETEROGENEOUSLY DENSE; Birads Letter: BIRADS 2, NORMAL BY ELECTRONICALLY SIGNING THIS REPORT, I THE ATTENDING PHYSICIAN ATTEST THAT I HAVE REVIEWED THE ABOVE IMAGES FOR THE ABOVE EXAMINATION(S) AND AGREE WITH THE FINDINGS DOCUMENTED ABOVE. ZAMZAM MILLER MD, VANDANA M. MD electronically signed on Aug 09 2022 9:48AM Procedure Note Nvein Tay MD - 10/10/2023 Final Report EXAMINATION: BILATERAL DIGITAL SCREENING MAMMOGRAM AND 3D DIGITALBREAST TOMOSYNTHESIS INTERPRETED WITH CAD INDICATION: Screening. Family history of breast cancer in maternal auntat age 35. COMPARISON: Prior mammogram(s) available in PACS. TECHNIQUE: Digital Mammogram and 3D tomosynthesis views were obtained. Computer aided detection was utilized and assisted with interpretation. FINDINGS: Tissue density: C - The breast tissue is heterogeneously dense which may obscure detection of small masses. Stable left upper outer oval circumscribed isodense mass corresponding toa benign simple cyst noted on the ultrasound dated 03 August 2021. Thereis no suspicious dominant mass, unexplained architectural distortion orsuspicious grouped microcalcifications. IMPRESSION: No mammographic evidence of malignancy. RECOMMENDATION(S): Age and risk appropriate screening. NOTIFICATION: A summary letter will be sent to the patient with thisresult. BI-RADS: 2 Benign. Comments: Birads Category: 2; Breast Density: HETEROGENEOUSLY DENSE;Birads Letter: BIRADS 2, NORMAL BY ELECTRONICALLY SIGNING THIS REPORT, I THE ATTENDING PHYSICIAN ATTESTTHAT I HAVE REVIEWED THE ABOVE IMAGES FOR THE ABOVE EXAMINATION(S) ANDAGREE WITH THE FINDINGS DOCUMENTED ABOVE. ZAMZAM MILLER MD, VANDANA M. MD electronically signed on Aug 09 2022 9:48AM Jacque Payne NP IMG MAMMOGRAPHY ORDERABLES Fin al Result * HDL Cholesterol (12/22/2020 11:02 AM EDT) HDL Cholesterol 64 >40 mg/dL CONV ERSION FROM [facility] 12/22/2020 11:0 2 AM EDT 12/22/2020 4:42 PM EDT Jacque Payne NP LAB BLOOD ORDERABLES Final Res ult CONVERSION FROM [facility] from Last 3 Months or Most Recently Relevant to Health Maintenance [place] [address] [address] [facility] Care Teams Vocal Teacher Relationship Specialty Start Date End Date Bacilio Patel MD [address] [place] [address] PCP - Insurance Assigned PCP 10/03/24
--- OUTSIDE RECORDS SUMMARY | 2025-07-14 13:20 | XMS_ITS | Clinical Summary ---
Author Organization [facility] Address [address] [id number] Phone Care Team Providers Care Chief Of Staff Name Role Phone Jacque Payne NP Primary Care Provider [phone] Social History Tobacco Use Types Packs/Day Years Used Date Smoking Tobacco: Never Assessed Education Answer Date Recorded Are you interested in more education? Not on lori e 11/19/2022 Are you concerned about learning? Not on file 11/19/2022 No 11/19/2022 No 11/19/2022 Digital Access Answer Date Recorded No 12/20/2022 No 12/20/2022 Reliable internet access at home? Not on file 12/20/2022 Device with a working camera? Not on file Comments Unknown Sex and Gender Information Value Date Recorded Sex Assigned at Not on file Legal Sex Female 8:58 AM EST Gender Identity Not on file Sexual Orientation Not on file Plan of Treatment Not on file Medical Devices Not on file Insurance [employer] Care Teams Chief Of Staff Relationship Specialty Start Date End Date Jacque Payne NP [address] [place] [id number] PCP - General 06/16/21 Additional Source Comments The information contained in this document represents components of the legal health record. It is not the complete legal health record.[facility]
--- OUTSIDE RECORDS SUMMARY | 2025-07-14 13:20 | XMS_ITS | Clinical Summary ---
Author Organization [facility] Address [address] [place] [address] Care Team Providers Care Photolith Operator Name Role Phone Pcp, No Primary Care Provider [phone] Allergies No known active allergies Medications No known medications Social History Tobacco Use Types Packs/Day Years Used Date Smoking Tobacco: Never Smokeless Tobacco: Never Comments No Sex and Gender Information Value Date Recorded Sex Assigned at Not on file Legal Sex Female 9:11 AM EDT Gender Identity Not on file Sexual Orientation Not on file Last Filed Vital Signs Vital Sign Reading Time Taken Comments Blood Pressure 120/86 10/23/2019 8:27 AM EDT Pulse 85 11/24/2020 8:34 AM EDT Temperature 36.4 C (97.5 F) 11/24/2020 8:34 AM EDT Respiratory Rate 20 10/23/2019 8:27 AM EDT Oxygen Saturation 100% 11/24/2020 8:34 AM EDT Inhaled Oxygen Concentration - - Weight 61.7 kg (136 lb) 10/23/2019 8:27 AM EDT Height 157.5 cm (5' 2 ) 10/23/2019 8:27 AM EDT Body Mass Index 24.87 10/23/2019 8:27 AM EDT Plan of Treatment Not on file Medical Devices Not on file Insurance [employer] [place] Care Teams Photolith Operator Relationship Specialty Start Date End Date Pcp, Vivi PCP - General Family Medicine 04/20/19
--- OUTSIDE RECORDS SUMMARY | 2025-07-14 13:20 | XMS_ITS | Encounter Summary ---
Author Organization [facility] Address [address] [facility] [address] [place] [phone] Phone Care Team Providers Care Manager Market Name Role Phone Jacque Payne NP Primary Care Provider [phone] Encounter Details Date Type Department Care Team (Latest Contact Info) Description 06/21/2021 Ancillary Orders [facility] Mamm[facility] [address] [place] [address] Chantel Le MD [address] [place] [id number] [email or web address] Visit for screening mammogram Social History Tobacco Use Types Packs/Day Years Used Date Smoking Tobacco: Never Assessed Comments Unknown Sex and Gender Information Value Date Recorded Sex Assigned at Not on file Legal Sex Female 8:58 AM EST Gender Identity Not on file Sexual Orientation Not on file documented as of this encounter Plan of Treatment Not on file documented as of this encounter Visit Diagnoses Diagnosis Visit for screening mammogram documented in this encounter Care Teams Manager Market Relationship Specialty Start Date End Date Jacque Payne NP [address] [place] [id number] PCP - General 06/16/21 documented as of this encounter Additional Source Comments The information contained in this document represents components of the legal health record. It is not the complete legal health record.[facility]
--- OUTSIDE RECORDS SUMMARY | 2025-07-14 13:20 | XMS_ITS | Clinical Summary ---
Author Organization [facility] Address [address] [place] [address] Phone Care Team Providers Care Steam Hoist Operator Name Role Phone Kassi Smith MD Primary Care Provider [phone] Kassi Smith MD Unavailable [phone] Magdalena Melendez FARM EQUIPMENT ENGINEER Unavailable [phone] Social History Tobacco Use Types Packs/Day Years Used Date Smoking Tobacco: Never Assessed Comments Unknown Sex and Gender Information Value Date Recorded Sex Assigned at Not on file Legal Sex Female 9:03 PM EDT Gender Identity Not on file Sexual Orientation Not on file Last Filed Vital Signs Vital Sign Reading Time Taken Comments Blood Pressure 119/69 09/17/2023 2:36 PM EST Pulse 84 09/17/2023 2:36 PM EST Temperature 36.4 C (97.5 F) 09/17/2023 11:28 AM EST Respiratory Rate 18 09/17/2023 2:36 PM EST Oxygen Saturation 98% 09/17/2023 2:36 PM EST Inhaled Oxygen Concentration - - Weight - - Height - - Body Mass Index - - Plan of Treatment Not on file Care Teams Steam Hoist Operator Relationship Specialty Start Date End Date Kassi Smith MD [address] [place] [address], [place] [address] PCP - General Internal Medicine 11/29/13 Kassi Smith MD [address] [address], [place] [address] PCP - Insurance 05/10/16 [place] [address] Primary Care Nurse Practitioner Internal Medicine 01/17/23
== END 2025-07-14 11:50 | disposition home or self-care (01) ==
LOC: HO.HMCH 10:45
PROVIDERS: PCP Internal Medicine; Visit Provider Internal Medicine
DX: M17.0 Bilateral primary osteoarthritis of knee (principal); I10 Essential (primary) hypertension; T14.8XXA Other injury of unspecified body region, initial encounter; F33.1 Major depressive disorder, recurrent, moderate; M79.7 Fibromyalgia; E66.9 Obesity, unspecified; H60.90 Unspecified otitis externa, unspecified ear

== ENCOUNTER → 2025-07-14 10:44 | Outpatient (BNVA) | payer OTHER, SELFPAY | PROVIDERS: PCP Internal Medicine; Visit Provider Internal Medicine | DX: M17.0 Bilateral primary osteoarthritis of knee (principal); I10 Essential (primary) hypertension; T14.8XXA Other injury of unspecified body region, initial encounter; M79.7 Fibromyalgia; E66.9 Obesity, unspecified; H60.91 Unspecified otitis externa, right ear; Z79.899 Other long term (current) drug therapy | CPT/HCPCS: 99212 ==